=== PATIENT | male | born 1980 | race Caucasian/White ===

== ENCOUNTER 2019-02-28 12:26 | Outpatient (CLI) | payer BC ==
--- NOTE | 2019-02-28 13:40 | Diagnostic Imaging Report ---
Indication: Shortness of breath Technique: One view of the chest Comparison: none Findings: Lungs and pleural spaces are clear. Heart size is normal. Impression: No acute process
== END 2019-02-28 14:26 | disposition home or self-care (01) ==
LOC: RAD 12:26
DX: R06.02 Shortness of breath (principal); R10.11 Right upper quadrant pain
CPT/HCPCS: 71046